=== PATIENT | male | born 1950 ===

== ENCOUNTER 2023-01-17 07:30 | Inpatient (IN) | payer OTHER ==
[~2023-01-17] VITALS: Ht 160 cm; Wt 68.0 kg
[2023-01-17] MEDS ORDERED: PREDNISONE PO (09:03)
[2023-01-17] MEDS ORDERED: PROGRAF0.5 MG PO (09:03)
[2023-01-17] MEDS ORDERED: PROGRAF1 MG PO (09:04)
[2023-01-17] MEDS ORDERED: SIMVAST PO (09:05)
[2023-01-17] MEDS ORDERED: COZAAR100 MG PO (09:05)
[2023-01-17] MEDS ORDERED: SEPTRA PO (09:05)
[2023-01-17] MEDS ORDERED: HORIZANT300 MG PO (09:06)
[2023-01-17] MEDS ORDERED: [UNRECOGNIZED DRUG - OTHER] PO (09:06)
[2023-01-17] MEDS ORDERED: TEGRETOL200 MG PO (09:07)
[2023-01-21] MEDS ORDERED: SULFAMETHOXAZO1 EACH (07:48)
[2023-01-21] MEDS ORDERED: SIMVASTATIN20 MG (07:48)
[2023-01-21] MEDS ORDERED: GABAPENTIN100 M2 (07:48)
[2023-01-21] MEDS ORDERED: PREDNISONE 5MG PO (08:07)
[2023-01-21] MEDS ORDERED: SIMVASTATIN10 MG (08:10)
[2023-01-21] MEDS ORDERED: MYFORTIC360 MG (08:11)
== END 2023-01-23 12:56 | disposition home or self-care (01) | DRG 708 ==
LOC: O/R 01-21 05:23 → SURH 01-21 05:23 → SURG 01-21 07:00 → SURH 01-21 13:52
PROVIDERS: ADMIT Urology; ATTEND Urology
PROC: 07BC0ZZ Excision of Pelvis Lymphatic, Open Approach (ICD-10-PCS; 2023-01-21)
PROC: 30233N1 Transfusion of Nonautologous Red Blood Cells into Peripheral Vein, Percutaneous Approach (ICD-10-PCS; 2023-01-21)
PROC: 0VT00ZZ Resection of Prostate, Open Approach (ICD-10-PCS; principal; 2023-01-21 07:00)
DX: C61 Malignant neoplasm of prostate (principal); R59.0 Localized enlarged lymph nodes; D64.9 Anemia, unspecified